=== PATIENT | male | born 1950 | race Hispanic/Latino ===

== ENCOUNTER 2016-06-01 07:12 | Day surgery (SDC) | payer MEDICARE, BC ==
[2016-06-01 08:38] VITALS: BMI 28.8
[2016-06-01] MEDS ORDERED: Lactated Ringer's 1,000 ML IV ONE ×2 (09:15→11:25)
[2016-06-01] MEDS ORDERED: Propofol 10 mg/ml Inj (20 ML) ONE (10:25)
[2016-06-01] MEDS ORDERED: Lidocaine 1% Inj (20ml) ONE (10:38)
[2016-06-01] MEDS ORDERED: Sodium Chloride 0.9% 100 ML ONE (10:50)
[2016-06-01] MEDS ORDERED: Lactated Ringer's 1,000 ML IV SCH (11:25)
[2016-06-01] MEDS ORDERED: HYDROmorphone 0.5 mg/0.5 ml ISec IVP PRN (11:25)
--- NOTE | 2016-06-01 11:29 | CP.SDSHP ---
Same Day Surgery H & P - History Proposed Procedure: Right lung mass biopsy Pre-Op Diagnosis: Right lung mass - Allergies Allergies: Allergies No Known Allergies Allergy (Verified 06/01/16 09:01) - Physical Exam Vital Signs: Vital Signs 06/01/16 06/01/16 09:00 10:42 Temperature 97.9 F 97.2 F L Pulse Rate 69 79 Respiratory 18 18 Rate Blood Pressure 127/78 155/97 H O2 Sat by Pulse 95 100 Oximetry Short Stay Discharge - Short Stay Discharge Admitting Diagnosis/Reason for Visit: LUNG MASS Disposition: HOME/ ROUTINE
--- NOTE | 2016-06-01 11:30 | PCM.SURG1 ---
Surgeon's Initial Post Op Note - Surgeon's Notes Surgeon: Lester Check Airman: None Type of Anesthesia: IV Sedation, Local Pre-Operative Diagnosis: Right lung mass. Operative Findings: Right lung mass. Post-Operative Diagnosis: Right lung mass. Operation Performed: Right lung mass CT guided biopsy. Specimen/Specimens Removed: 20G core samples obtained. Estimated Blood Loss: EBL {In ML}: 1 Date of Surgery/Procedure: 06/01/16 Time of Surgery/Procedure: 11:20
[2016-06-01] MEDS ORDERED: HYDROmorphone 0.5 mg/0.5 ml ISec ONE (12:33)
--- NOTE | 2016-06-01 13:31 | RAD ---
HISTORY: Right lung mass biopsy COMPARISON: CT chest without contrast from 05/25/2016 FINDINGS: LUNGS: There is redemonstration of a 2.5 cm nodule in the right upper lobe. There is a right lower lobe atelectasis. The left lung is clear. PLEURA: No significant pleural effusion identified, no pneumothorax apparent. CARDIOVASCULAR: Normal. OSSEOUS STRUCTURES: No significant abnormalities. VISUALIZED UPPER ABDOMEN: Normal. OTHER FINDINGS: There is chronic elevation of the right hemidiaphragm. IMPRESSION: Right basilar atelectasis. No change in known 2.5 centimeter right upper lobe nodule.
[2016-06-01 14:22] VITALS: RESP 18
--- NOTE | 2016-06-01 15:17 | RAD ---
HISTORY: Right lung mass biopsy COMPARISON: 06/01/2016 earlier on. FINDINGS: LUNGS: Nodular opacity in the right lower lung again seen. Hazy opacity in the right lung base seen. PLEURA: No significant pleural effusion identified, no pneumothorax apparent. CARDIOVASCULAR: Normal. OSSEOUS STRUCTURES: The osseous structures demonstrate degenerative changes. VISUALIZED UPPER ABDOMEN: Upper abdomen is suboptimally evaluated. OTHER FINDINGS: None. IMPRESSION: The right lower lung nodule and hazy opacity, unchanged. No pneumothorax seen.
--- NOTE | 2016-06-01 15:17 | CT ---
CT-guided right lung mass biopsy History: 66-year-old male with right lung mass. Evaluate for malignancy. Comparison: Comparison is made to CT scan of the chest from 05/25/2016. Anesthesia: Anesthesia support provided by attending anesthesiologist. Procedure and findings The procedure was explained to the patient including relative risks and benefits. The patient understood the procedure and provided written informed consent. Continuous physiologic monitoring was provided by the attending anesthesiologist and the interventional radiology nurse. The patient was positioned prone on the CT table. A metallic grid was utilized to identify the percutaneous access site. Subsequently, the access site and the subcutaneous tissue were anesthetized using 1 % lidocaine. A 19 gauge coaxial introducer needle was then advanced through a percutaneous access site into the peripheral aspect of the right lung mass. After confirming the correct positioning of the needle using CT, the inner stylet was removed. A 20 gauge spring-loaded core biopsy needle was then introduced through the 19 gauge outer cannula. 3 biopsy samples were obtained and sent to the pathologist for evaluation of adequacy. Final CT images demonstrated mild hazy opacity surrounding the biopsied segment. No pneumothorax was apparent. A sterile dressing was applied. The patient tolerated procedure well without incident. The patient was transferred to the recovery room in stable condition. Serial chest radiographs were ordered to evaluate for pneumothorax. Impression: Successful percutaneous core needle biopsy of the right lung mass.
[2016-06-01 15:53] VITALS: BP 130/80; PULSE 73; TEMP 98; O2SAT 94
== END 2016-06-01 15:55 | disposition home or self-care (01) ==
LOC: H.OPSURG 07:12
PROVIDERS: ATTEND Internal Medicine Pulmonary Disease
DX: R91.8 Other nonspecific abnormal finding of lung field (principal)
CPT/HCPCS: 32405; 71010; 77012; 88307; J1170; J2001; J2704; J7120

== ENCOUNTER 2018-03-07 14:03 | Observation (INO) | payer MEDICARE, BC ==
[2018-03-07 14:03] VITALS: BMI 28.8
--- NOTE | 2018-03-07 14:46 | ED PDOC ---
HPI: Chest Pain Time Seen by Provider: 03/07/18 14:17 Chief Complaint (Nursing): Chest Pain Additional Complaint(s): 67 year old Male with PMHx hyperlipidemia and right lung nodule s/p biopsy neg for CA presents to ER with complaints of chest tightness, shortness of breath, non productive cough and right sided chest discomfort for 1 week. Patient reports right sided chest discomfort radiates to right shoulder and neck. Also reports chest tightness and shortness breath is worse today. Denies any focal weakness, nausea,vomiting,abdominal pain, complaints, fever or chills. Of note, Patient had chest CT done this morning for f/u on his lung nodule. Patient called his double cut off saw operator Dr. Duke today and patient was advised to come to ED for further evaluation. PMD: Dr. Cui Dry Wall Plasterer: Dr. Duke Past Medical History Vital Signs: Last Vital Signs Temp 98.3 F 03/07/18 14:11 Pulse 76 03/07/18 14:11 Resp 18 03/07/18 14:11 BP 169/89 H 03/07/18 14:11 Pulse Ox 100 03/07/18 14:11 - Medical History PMH: Benign Prostatic Hyperplasia, HTN, Hypercholesterolemia, Kidney Stones, Mitral Valve Prolapse, Pneumonia Denies: Arthritis, CHF, COPD, Fractures, HIV, Hypothyroidism, Chronic Kidney Disease, Rheumatoid Arthritis - Family History Family History: States: Unknown Family Hx - Home Medications Home Medications: Ambulatory Orders Medication Instructions Recorded Atorvastatin [Lipitor] 10 mg PO HS #0 tab 09/15/15 Lisinopril [Zestril] 5 mg PO DAILY #0 tab 09/15/15 Tadalafil [Cialis] 5 mg PO DAILY #0 tablet 09/15/15 Atorvastatin [Lipitor] 10 mg PO DAILY 06/01/16 Tadalafil [Cialis] 5 mg PO DAILY 06/01/16 - Allergies Allergies/Adverse Reactions: Allergies Allergy/AdvReac Type Severity Reaction Status Date / Time No Known Allergies Allergy Verified 06/01/16 09:01 Review of Systems ROS Statement: Except As Marked, All Systems Reviewed And Found Negative Physical Exam - Physical Exam Appears: Positive for: Non-toxic, No Acute Distress Head Exam: Positive for: ATRAUMATIC, NORMOCEPHALIC Skin: Positive for: Normal Color, Warm. Negative for: Diaphoresis Neck: Positive for: Supple Cardiovascular/Chest: Positive for: Regular Rate, Rhythm, Murmur Respiratory: Positive for: Crackles (on right lung base). Negative for: Accessory Muscle Use, Wheezing, Respiratory Distress Gastrointestinal/Abdominal: Positive for: Normal Exam, Bowel Sounds, Soft. Negative for: Tenderness Extremity: Negative for: Pedal Edema, Calf Tenderness Neurologic/Psych: Positive for: Alert, Oriented - Laboratory Results Result Diagrams: 03/07/18 15:10 03/07/18 15:10 - ECG O2 Sat by Pulse Oximetry: 100 - Progress ED Course And Treament: 67 yo male presents to ED for chest tightness, right sided chest discomfort, shortness of breath and dry cough x 1 week. Plan: EKG Troponin I CBC CMP PT/INR Re-evaluate Patient had Chest CT w/o contrast this morning CHEST CT: IMPRESSION: Stable dominant pulmonary nodule in satellite lesion anterior segment right upper lobe. Stability over 18 months, comparison of 3 sequential serial studies Additional benign and/or incidental findings described above. ECG shows NSR @78 BMP. Right bundle branch block seen. Compared with prior ECG in 08/2015, no RBBB seen in previous ECG. Labs reviewed: CBC, CMP, Troponin x 1 neg and proBNP neg. Plan d/w with / TIME 15:[address] Cui regarding the needs for admission due to EKG changes. Hospitalist are covering for Dr. Cui. Time: 16:47 Dr. Denton spoke with Hospitalist Dr. Denton regarding admission for chest pain. Disposition - Clinical Impression Clinical Impression: Chest pain - Disposition Disposition Time: 17:14 Condition: FAIR
[2018-03-07 15:24] LABS: BASO # 0.1 K/uL (0.0-0.2); BASO % 1.1 % (0.0-2.0); EOS # 0.2 K/uL (0.0-0.7); EOS % 3.2 % (0.0-4.0); HEMOGLOBIN 15.5 g/dL (12.0-18.0); LYMPH # 1.2 K/uL (1.0-4.3); LYMPH % 18.3 % (20.0-40.0); MEAN CELL VOLUME 92.1 fl (80.0-94.0); MEAN CORPUSCULAR HGB CONC 32.6 g/dL (33.0-37.0); MEAN PLATELET VOLUME 7.1 fl (7.2-11.7); MONO # 0.6 K/uL (0.0-0.8); MONO % 9.8 % (0.0-10.0); NEUT # 4.3 K/uL (1.8-7.0); NEUT % 67.6 % (50.0-75.0); RBC 5.18 Mil/uL (4.40-5.90); RED CELL DISTRIBUTION WIDTH 13.4 % (11.5-14.5); WHITE BLOOD COUNT 6.4 K/uL (4.8-10.8)
[2018-03-07 15:29] LABS: PROTHROMBIN TIME 11.5 Seconds (9.8-13.1)
[2018-03-07 15:31] LABS: PARTIAL THROMBOPLASTIN TIME 29.8 Seconds (25.6-37.1)
[2018-03-07 15:32] LABS: ALB/GLOB RATIO 1.3 (1.0-2.1); ALT/SGPT 53 U/L (21-72); AST/SGOT 29 U/L (17-59); BLOOD UREA NITROGEN 19 mg/dl (9-20); CALCIUM 9.1 mg/dL (8.4-10.2); GFR NON-AFRICAN AMERICAN > 60
[2018-03-07 15:53] LABS: B-TYPE NATRIURETIC PEPTIDE 33.7 pg/ml (0-900)
--- NOTE | 2018-03-07 16:17 | ED PDOC ---
- Laboratory Results Result Diagrams: 03/07/18 15:10 03/07/18 15:10 - ECG O2 Sat by Pulse Oximetry: 100 - Progress ED Course And Treament: 1615: Stable. AAOx3. Took over care from Dr. Blair. Yariel on labs. Dr. Cui is pcp. 1647: Stable. AAOx3. Pain free. Spoke with with Dr. Santos. Will admit. Disposition - Clinical Impression Clinical Impression: Chest pain - POA Present On Arrival: None Core Measure Indicators: Chest Pain - Disposition Disposition: Hospitalized as Observation Patient Disposition Time: 16:49 Condition: FAIR
--- NOTE | 2018-03-07 17:13 | CP.PCM.HP ---
<HumphreyDelarosa - Last Filed: 03/07/18 17:35> History of Present Illness - History of Present Illness History of Present Illness: 67 y/o M with PMHx of HLD and right lung nodule, s/p biopsy negative for Ca as per patient presents to ED complaining of chest tightness, shortness of breath and dry nonproductive cough for 1 week. Chest tightness is right sided, constant, with pain radiating to right sided neck and shoulder and aggravated by deep breathing. Chest tightness and SOb worsened today. Denies recent illness, ill contacts. Denies trying any new medications. Denies any dizziness, focal weakness, nausea, vomiting, abdominal pain, complaints, fever or chills. Patient also had chest CT done this morning for f/u on his lung nodule. Patient called his development trainer Dr. Dkue today and patient was advised to come to ED for further evaluation. PMD: Dr. Cui Pharmacist In Charge Owner: Dr. Duke PMHx: HLD, BPH PSHx: B/L inguinal hernia repair 20 years ago, R Lung Bx 2 years ago Allergies: NKDA Medications: Cialis 5 mg daily, Testosterone, Statin 20 mg F/H: Mother HTN Social Hx: Occasional alcohol, Denies smoking/drug use ED Course Vitals: Temp 98.3, HR 76, BP 169/89, RR 18 ECG: NSR @78 BMP. Right bundle branch block seen. Compared with prior ECG in 08/2015, no RBBB seen in previous ECG. Troponin I Neg CBC, CMP, PT/INR WNL Patient had Chest CT w/o contrast this morning CHEST CT: Stable dominant pulmonary nodule in satellite lesion anterior segment right upper lobe. Stability over 18 months, comparison of 3 sequential serial studies, Additional benign and/or incidental findings described above. Present on Admission - Present on Admission Any Indicators Present on Admission: No History of DVT/PE: No History of Uncontrolled Diabetes: No Urinary Catheter: No Decubitus Ulcer Present: No Review of Systems - Constitutional Constitutional: absent: Fatigue, Fever, Weakness - EENT Eyes: absent: Change in Vision - Cardiovascular Cardiovascular: Chest Pain, Dyspnea. absent: Irregular Heart Rhythm, Leg Edema, Pedal Edema - Respiratory Respiratory: Cough - Gastrointestinal Gastrointestinal: absent: Abdominal Pain, Change in Bowel Habits, Constipation, Diarrhea, Nausea, Vomiting - Genitourinary Genitourinary: absent: Change in Urinary Stream - Musculoskeletal Musculoskeletal: absent: Back Pain Past Patient History - Infectious Disease Hx of Infectious Diseases: None - Past Medical History & Family History Past Medical History?: Yes - Past Social History Smoking Status: Never Smoked - CARDIAC Hx Congestive Heart Failure: No Hx Hypercholesterolemia: Yes Hx Hypertension: Yes Hx Mitral Valve Prolapse: Yes - PULMONARY Hx Chronic Obstructive Pulmonary Disease (COPD): No Hx Pneumonia: Yes - NEUROLOGICAL Hx Neurological Disorder: No HX Cerebrovascular Accident: No - HEENT Hx HEENT Problems: No - RENAL Hx Chronic Kidney Disease: No Hx Kidney Stones: Yes - ENDOCRINE/METABOLIC Hx Hypothyroidism: No - HEMATOLOGICAL/ONCOLOGICAL Hx Human Immunodeficiency Virus (HIV): No - INTEGUMENTARY Hx Dermatological Problems: No - MUSCULOSKELETAL/RHEUMATOLOGICAL Hx Arthritis: No Hx Fractures: No Hx Rheumatoid Arthritis: No - GASTROINTESTINAL Hx Gastrointestinal Disorders: No - GENITOURINARY/GYNECOLOGICAL Hx Genitourinary Disorders: No Hx Prostate Problems: Yes - PSYCHIATRIC Hx Psychophysiologic Disorder: No Hx Substance Use: No - SURGICAL HISTORY Hx Surgeries: Yes Hx Herniorrhaphy: Yes - ANESTHESIA Hx Anesthesia: Yes Hx Anesthesia Reactions: No Hx Malignant Hyperthermia: No Meds Allergies/Adverse Reactions: Allergies Allergy/AdvReac Type Severity Reaction Status Date / Time No Known Allergies Allergy Verified 06/01/16 09:01 Physical Exam - Constitutional Appears: No Acute Distress - Head Exam Head Exam: ATRAUMATIC, NORMOCEPHALIC - Eye Exam Eye Exam: EOMI, Normal appearance - ENT Exam ENT Exam: Mucous Membranes Moist - Neck Exam Neck exam: Positive for: Full Rom - Respiratory Exam Respiratory Exam: Clear to Auscultation Bilateral. absent: Decreased Breath Sounds, Rales, Rhonchi, Wheezes, Respiratory Distress - Cardiovascular Exam Cardiovascular Exam: REGULAR RHYTHM, +S1, +S2 - GI/Abdominal Exam GI & Abdominal Exam: Normal Bowel Sounds, Soft. absent: Distended, Tenderness - Extremities Exam Extremities exam: Negative for: calf tenderness, pedal edema, tenderness - Back Exam Back exam: absent: CVA tenderness (L), CVA tenderness (R) - Neurological Exam Neurological exam: Alert, Altered, Oriented x3 - Psychiatric Exam Psychiatric exam: Normal Affect, Normal Mood - Skin Skin Exam: Dry, Intact, Normal Color, Warm Results - Vital Signs Recent Vital Signs: Last Vital Signs Temp 98.3 F 03/07/18 14:11 Pulse 76 03/07/18 14:11 Resp 18 03/07/18 14:11 BP 169/89 H 03/07/18 14:11 Pulse Ox 100 03/07/18 16:49 - Labs Result Diagrams: 03/07/18 15:10 03/07/18 15:10 Labs: Laboratory Results - last 24 hr 03/07/18 03/07/18 03/07/18 15:10 15:10 15:10 WBC 6.4 RBC 5.18 Hgb 15.5 Hct 47.7 MCV 92.1 MCH 30.0 MCHC 32.6 L RDW 13.4 Plt Count 269 MPV 7.1 L Neut % (Auto) 67.6 Lymph % (Auto) 18.3 L [place] % (Auto) 9.8 Eos % (Auto) 3.2 Baso % (Auto) 1.1 Neut # (Auto) 4.3 Lymph # (Auto) 1.2 [place] # (Auto) 0.6 Eos # (Auto) 0.2 Baso # (Auto) 0.1 PT 11.5 INR 1.0 APTT 29.8 Sodium 140 Potassium 4.4 Chloride 104 Carbon Dioxide 28 Anion Gap 12 BUN 19 Creatinine 0.6 L Est GFR ( Amer) > 60 Est GFR (Non-Af Amer) > 60 Random Glucose 91 Calcium 9.1 Total Bilirubin 0.4 AST 29 ALT 53 Alkaline Phosphatase 55 Troponin I < 0.0120 NT-Pro-B Natriuret Pep 33.7 Total Protein 7.0 Albumin 4.0 Globulin 3.0 Albumin/Globulin Ratio 1.3 Assessment & Plan - Assessment and Plan (Free Text) Assessment: 67 y/o M with PMHx of HLD and right lung nodule, s/p biopsy negative for Ca as per patient presents to ED complaining of chest tightness, shortness of breath and dry nonproductive cough for 1 week. Plan: Right sided chest pain, R/O ACS H/O Pulmonary nodule - Admitted to telemetry - EKG: NSR, RBBB, Left ant fascicular block - Troponin neg x 1, CBC, CMP, PT/PTT unremarkable - Dr. Cui consulted: Recs appreciated - Cardiology consulted: Dr Duke, Recs appreciated - Started on ASA 81, Atorvastatin 10 mg, Lisinopril 5 mg PO - F/U Troponins x 2, CBC, CMP - F/U Echo Hyperlipedemia - Continue Lipitor 20 mg daily DVT Prophylaxis - SCDs - LOvenox 40 mg SC daily Diet: Heart healthy <Jd Santos D - Last Filed: 03/07/18 17:41> Results - Vital Signs Recent Vital Signs: Last Vital Signs Temp 98.3 F 03/07/18 14:11 Pulse 76 03/07/18 14:11 Resp 18 03/07/18 14:11 BP 169/89 H 03/07/18 14:11 Pulse Ox 100 03/07/18 17:15 - Labs Result Diagrams: 03/07/18 15:10 03/07/18 15:10 Labs: Laboratory Results - last 24 hr 03/07/18 03/07/18 03/07/18 15:10 15:10 15:10 WBC 6.4 RBC 5.18 Hgb 15.5 Hct 47.7 MCV 92.1 MCH 30.0 MCHC 32.6 L RDW 13.4 Plt Count 269 MPV 7.1 L Neut % (Auto) 67.6 Lymph % (Auto) 18.3 L [place] % (Auto) 9.8 Eos % (Auto) 3.2 Baso % (Auto) 1.1 Neut # (Auto) 4.3 Lymph # (Auto) 1.2 [place] # (Auto) 0.6 Eos # (Auto) 0.2 Baso # (Auto) 0.1 PT 11.5 INR 1.0 APTT 29.8 Sodium 140 Potassium 4.4 Chloride 104 Carbon Dioxide 28 Anion Gap 12 BUN 19 Creatinine 0.6 L Est GFR ( Amer) > 60 Est GFR (Non-Af Amer) > 60 Random Glucose 91 Calcium 9.1 Total Bilirubin 0.4 AST 29 ALT 53 Alkaline Phosphatase 55 Troponin I < 0.0120 NT-Pro-B Natriuret Pep 33.7 Total Protein 7.0 Albumin 4.0 Globulin 3.0 Albumin/Globulin Ratio 1.3 Attending/Attestation - Attestation I have personally seen and examined this patient.: Yes I have fully participated in the care of the patient.: Yes I have reviewed all pertinent clinical information: Yes Notes (Text): 03/07/18 17:39 Patient seen and examined with resident. Case discussed and agreed with assessment and plan of management
--- NOTE | 2018-03-07 19:02 | CARD ---
APPROVED REPORT Date of service: 03/07/2018 EKG Measurement Heart [id number] <Conclusion> Normal sinus rhythm Right bundle branch block Left anterior fascicular block Bifascicular block Abnormal ECG
[2018-03-08 06:06] LABS: MEAN CELL VOLUME 94.2 fl (80.0-94.0); MEAN CORPUSCULAR HEMOGLOBIN 30.4 pg (27.0-31.0); MEAN CORPUSCULAR HGB CONC 32.3 g/dL (33.0-37.0); RBC 4.94 Mil/uL (4.40-5.90); RED CELL DISTRIBUTION WIDTH 13.4 % (11.5-14.5); WHITE BLOOD COUNT 5.3 K/uL (4.8-10.8)
[2018-03-08 06:27] LABS: BLOOD UREA NITROGEN 19 mg/dl (9-20); CALCIUM 8.6 mg/dL (8.4-10.2); GFR NON-AFRICAN AMERICAN > 60
[2018-03-08 07:54] VITALS: RESP 20
[2018-03-08] MEDS ORDERED: Enoxaparin 40 mg Syringe SC SCH (09:00)
--- NOTE | 2018-03-08 11:52 | CP.PCM.CON ---
History of Present Illness - History of Present Illness History of Present Illness: This 67 year old male, a former cigarette smoker, has been known to me since August 2015 when he was hospitalized with a severe right upper lobe pneumonia. He did recover from that episode with antibiotic therapy and was discharged home. In follow up he developed what appeared to be a pleural based, rounded atelectasis in the right upper lobe. A bronchoscopy with biopsy at that time showed atelectasis with mixed acute and chronic inflammation. Serial CT scans since that time have shown a stable pleural based nodule/atelectasis which has gradually decreased in size to 1.4 X 1.7cm. He presented to the emergency room yesterday with right sided pleuritic type of pain associated with shortness of breath. No fever, chills or leukocytosis found. He did have some changes in his EKG and was kept overnight for cardiac evaluation. This morning he does feel improved w/o pain or SOB at present. He has never had any hemoptysis, and has h ad occasional non-productive cough and episodes of mild transient pleuritic pain on that side. Past Patient History - Infectious Disease Hx of Infectious Diseases: None - Past Medical History & Family History Past Medical History?: Yes - Past Social History Smoking Status: Former Smoker Chewing Tobacco Use: No Cigar Use: No Alcohol: Social Drugs: Denies Home Situation {Lives}: With Family - CARDIAC Hx Congestive Heart Failure: No Hx Hypercholesterolemia: Yes Hx Mitral Valve Prolapse: Yes - PULMONARY Hx Pneumonia: Yes Other/Comment: rounded atelectasis RUL - NEUROLOGICAL Hx Neurological Disorder: No - HEENT Hx HEENT Problems: No - RENAL Hx Kidney Stones: Yes - ENDOCRINE/METABOLIC Hx Endocrine Disorders: No - HEMATOLOGICAL/ONCOLOGICAL Hx Blood Disorders: No Hx Human Immunodeficiency Virus (HIV): No - INTEGUMENTARY Hx Dermatological Problems: No - MUSCULOSKELETAL/RHEUMATOLOGICAL Hx Musculoskeletal Disorders: No Hx Falls: No - GASTROINTESTINAL Hx Gastrointestinal Disorders: No - GENITOURINARY/GYNECOLOGICAL Hx Prostate Problems: Yes - PSYCHIATRIC Hx Psychophysiologic Disorder: No Hx Substance Use: No - SURGICAL HISTORY Hx Herniorrhaphy: Yes - ANESTHESIA Hx Anesthesia: Yes Hx Anesthesia Reactions: No Hx Malignant Hyperthermia: No Has any member of the family had a problem w/ anesthesia?: No Meds Allergies/Adverse Reactions: Allergies Allergy/AdvReac Type Severity Reaction Status Date / Time No Known Allergies Allergy Verified 06/01/16 09:01 - Medications Medications: Current Medications Aspirin (Aspirin Chewable) 81 mg PO DAILY [facility] Last Admin: 03/08/18 10:56 Dose: 81 mg Atorvastatin Calcium (Lipitor) 20 mg PO DAILY [facility] Last Admin: 03/08/18 10:56 Dose: 20 mg Enoxaparin Sodium (Lovenox) 40 mg SC DAILY [facility]; Protocol Last Admin: 03/08/18 10:58 Dose: 40 mg Lisinopril (Zestril) 5 mg PO DAILY [facility] Last Admin: 03/08/18 10:57 Dose: 5 mg Physical Exam - Additional Findings Additional findings: Well nourished, well developed, in no acute distress, seated on EOB. Mild flushed appearance of upper anterior thorax and base of neck. Pharynx is pink and moist w/o exudate. Conjunctivae are pink and non-icteric. Nares are patent bilaterally w/o bleeding. Neck is supple, trachea midline, no JVD or carotid bruit. Palpable, tender, soft node in left supraclavicular fossa. No other adenopathy palpated. No dullness on chest percussion, no subcutaneous emphysema. Breath sounds are well heard bilaterally. Late inspiratory rhonchus RLL region. Left lung is clear on auscultation. No wheezes. No pleural rub appreciated. Heart sounds well heard, no murmur, regular rhythm. Abdomen is soft and non-tender with normal bowel sounds. No dependant edema, no cyanosis, no rashes, no calf tenderness. Results - Vital Signs Recent Vital Signs: Last Vital Signs Temp 97.8 F 03/08/18 09:00 Pulse 82 03/08/18 10:57 Resp 20 03/08/18 09:00 BP 128/84 03/08/18 10:57 Pulse Ox 96 03/08/18 09:00 - Labs Result Diagrams: 03/08/18 05:00 03/08/18 05:00 Labs: Laboratory Results - last 24 hr 03/07/18 03/07/18 03/07/18 15:10 15:10 15:10 WBC 6.4 RBC 5.18 Hgb 15.5 Hct 47.7 MCV 92.1 MCH 30.0 MCHC 32.6 L RDW 13.4 Plt Count 269 MPV 7.1 L Neut % (Auto) 67.6 Lymph % (Auto) 18.3 L [place] % (Auto) 9.8 Eos % (Auto) 3.2 Baso % (Auto) 1.1 Neut # (Auto) 4.3 Lymph # (Auto) 1.2 [place] # (Auto) 0.6 Eos # (Auto) 0.2 Baso # (Auto) 0.1 PT 11.5 INR 1.0 APTT 29.8 Sodium 140 Potassium 4.4 Chloride 104 Carbon Dioxide 28 Anion Gap 12 BUN 19 Creatinine 0.6 L Est GFR ( Amer) > 60 Est GFR (Non-Af Amer) > 60 Random Glucose 91 Calcium 9.1 Total Bilirubin 0.4 AST 29 ALT 53 Alkaline Phosphatase 55 Troponin I < 0.0120 NT-Pro-B Natriuret Pep 33.7 Total Protein 7.0 Albumin 4.0 Globulin 3.0 Albumin/Globulin Ratio 1.3 03/07/18 03/08/18 03/08/18 19:38 05:00 05:00 WBC 5.3 RBC 4.94 Hgb 15.0 Hct 46.6 MCV 94.2 H D MCH 30.4 MCHC 32.3 L RDW 13.4 Plt Count 270 MPV Neut % (Auto) Lymph % (Auto) [place] % (Auto) Eos % (Auto) Baso % (Auto) Neut # (Auto) Lymph # (Auto) [place] # (Auto) Eos # (Auto) Baso # (Auto) PT INR APTT Sodium 138 Potassium 4.1 Chloride 104 Carbon Dioxide 28 Anion Gap 10 BUN 19 Creatinine 0.7 L Est GFR ( Amer) > 60 Est GFR (Non-Af Amer) > 60 Random Glucose 86 Calcium 8.6 Total Bilirubin AST ALT Alkaline Phosphatase Troponin I < 0.0120 < 0.0120 NT-Pro-B Natriuret Pep Total Protein Albumin Globulin Albumin/Globulin Ratio Assessment & Plan (1) Rounded radiologic density Status: Chronic Priority: Medium (2) Pleuritic chest pain Status: Acute Priority: High - Assessment and Plan (Free Text) Plan: Although the size of the right pleural density is stable, and may have actually decreased in size, the persistent/recurrent symptoms may warrant further intervention. Will have follow up as an outpatient with possible surgical evaluation as well. Cardiac evaluation is presently being undertaken. - Date & Time Date: 03/08/18 Time: 12:24
[2018-03-08 12:04] VITALS: BP 131/85; PULSE 85; TEMP 98.3; O2SAT 95
--- NOTE | 2018-03-08 12:45 | CP.PCM.CON ---
History of Present Illness - History of Present Illness History of Present Illness: 67 yo male admitted with r sided chest pain. 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 Cardiac enzymes are normal x 3. ECHO: Normal LVEF, No wma, RV normal, MVP mild MR. Past Patient History - Infectious Disease Hx of Infectious Diseases: None - Past Medical History & Family History Past Medical History?: Yes - Past Social History Smoking Status: Former Smoker Chewing Tobacco Use: No Cigar Use: No Alcohol: Social Drugs: Denies Home Situation {Lives}: With Family - CARDIAC Hx Congestive Heart Failure: No Hx Hypercholesterolemia: Yes Hx Mitral Valve Prolapse: Yes - PULMONARY Hx Pneumonia: Yes Other/Comment: rounded atelectasis RUL - NEUROLOGICAL Hx Neurological Disorder: No - HEENT Hx HEENT Problems: No - RENAL Hx Kidney Stones: Yes - ENDOCRINE/METABOLIC Hx Endocrine Disorders: No - HEMATOLOGICAL/ONCOLOGICAL Hx Blood Disorders: No Hx Human Immunodeficiency Virus (HIV): No - INTEGUMENTARY Hx Dermatological Problems: No - MUSCULOSKELETAL/RHEUMATOLOGICAL Hx Musculoskeletal Disorders: No Hx Falls: No - GASTROINTESTINAL Hx Gastrointestinal Disorders: No - GENITOURINARY/GYNECOLOGICAL Hx Prostate Problems: Yes - PSYCHIATRIC Hx Psychophysiologic Disorder: No Hx Substance Use: No - SURGICAL HISTORY Hx Herniorrhaphy: Yes - ANESTHESIA Hx Anesthesia: Yes Hx Anesthesia Reactions: No Hx Malignant Hyperthermia: No Has any member of the family had a problem w/ anesthesia?: No Meds Home Medications: Home Medication List Medication Instructions Recorded Confirmed Type Azithromycin [Z-Surendra] 250 mg PO ASDIR #6 tab 03/08/18 Rx Allergies/Adverse Reactions: Allergies Allergy/AdvReac Type Severity Reaction Status Date / Time No Known Allergies Allergy Verified 06/01/16 09:01 - Medications Medications: Current Medications Aspirin (Aspirin Chewable) 81 mg PO DAILY [facility] Last Admin: 03/08/18 10:56 Dose: 81 mg Atorvastatin Calcium (Lipitor) 20 mg PO DAILY [facility] Last Admin: 03/08/18 10:56 Dose: 20 mg Enoxaparin Sodium (Lovenox) 40 mg SC DAILY [facility]; Protocol Last Admin: 03/08/18 10:58 Dose: 40 mg Lisinopril (Zestril) 5 mg PO DAILY [facility] Last Admin: 03/08/18 10:57 Dose: 5 mg Physical Exam - Head Exam Head Exam: NORMAL INSPECTION - ENT Exam ENT Exam: Mucous Membranes Dry - Neck Exam Neck exam: Positive for: Normal Inspection - Respiratory Exam Respiratory Exam: Clear to Auscultation Bilateral - Cardiovascular Exam Cardiovascular Exam: REGULAR RHYTHM - GI/Abdominal Exam GI & Abdominal Exam: Normal Bowel Sounds - Extremities Exam Extremities exam: Positive for: normal inspection Results - Vital Signs Recent Vital Signs: Last Vital Signs Temp 98.3 F 03/08/18 12:03 Pulse 85 03/08/18 12:03 Resp 20 03/08/18 12:03 BP 131/85 03/08/18 12:03 Pulse Ox 95 03/08/18 12:03 - Labs Result Diagrams: 03/08/18 05:00 03/08/18 05:00 Labs: Laboratory Results - last 24 hr 03/07/18 03/07/18 03/07/18 15:10 15:10 15:10 WBC 6.4 RBC 5.18 Hgb 15.5 Hct 47.7 MCV 92.1 MCH 30.0 MCHC 32.6 L RDW 13.4 Plt Count 269 MPV 7.1 L Neut % (Auto) 67.6 Lymph % (Auto) 18.3 L [place] % (Auto) 9.8 Eos % (Auto) 3.2 Baso % (Auto) 1.1 Neut # (Auto) 4.3 Lymph # (Auto) 1.2 [place] # (Auto) 0.6 Eos # (Auto) 0.2 Baso # (Auto) 0.1 PT 11.5 INR 1.0 APTT 29.8 Sodium 140 Potassium 4.4 Chloride 104 Carbon Dioxide 28 Anion Gap 12 BUN 19 Creatinine 0.6 L Est GFR ( Amer) > 60 Est GFR (Non-Af Amer) > 60 Random Glucose 91 Calcium 9.1 Total Bilirubin 0.4 AST 29 ALT 53 Alkaline Phosphatase 55 Troponin I < 0.0120 NT-Pro-B Natriuret Pep 33.7 Total Protein 7.0 Albumin 4.0 Globulin 3.0 Albumin/Globulin Ratio 1.3 03/07/18 03/08/18 03/08/18 19:38 05:00 05:00 WBC 5.3 RBC 4.94 Hgb 15.0 Hct 46.6 MCV 94.2 H D MCH 30.4 MCHC 32.3 L RDW 13.4 Plt Count 270 MPV Neut % (Auto) Lymph % (Auto) [place] % (Auto) Eos % (Auto) Baso % (Auto) Neut # (Auto) Lymph # (Auto) [place] # (Auto) Eos # (Auto) Baso # (Auto) PT INR APTT Sodium 138 Potassium 4.1 Chloride 104 Carbon Dioxide 28 Anion Gap 10 BUN 19 Creatinine 0.7 L Est GFR ( Amer) > 60 Est GFR (Non-Af Amer) > 60 Random Glucose 86 Calcium 8.6 Total Bilirubin AST ALT Alkaline Phosphatase Troponin I < 0.0120 < 0.0120 NT-Pro-B Natriuret Pep Total Protein Albumin Globulin Albumin/Globulin Ratio Assessment & Plan - Assessment and Plan (Free Text) Assessment: Non cardiac chest pain No clinical evidence of ischemia Nonspecific EKG abnormalities ECHO: unremarkable OK to DC F/u as outpatient
--- NOTE | 2018-03-08 14:54 | CP.PCM.DIS ---
<[place] Yin - Last Filed: 03/08/18 15:04> Provider - Provider Date of Admission: 03/07/18 16:48 Attending physician: Jd Santos MD Consults: 03/07/18 16:50 Cardiology Consult Stat Comment: Consulting Provider: Alberto Duke Consulting Physician: Alberto Duke Reason for Consult: chest pain with bifascicular block Pulmonology Consult Stat Comment: Consulting Provider: Eloy Cui Consulting Physician: Eloy Ciu Reason for Consult: right sided chest pain Time Spent in preparation of Discharge (in minutes): 35 Diagnosis - Discharge Diagnosis (1) Chest pain not due to acute coronary syndrome Status: Acute (2) Lung nodule, solitary Status: Chronic Hospital Course - Lab Results Lab Results: Most Recent Lab Values WBC 5.3 K/uL (4.8-10.8) 03/08/18 05:00 RBC 4.94 Mil/uL (4.40-5.90) 03/08/18 05:00 Hgb 15.0 g/dL (12.0-18.0) 03/08/18 05:00 Hct 46.6 % (35.0-51.0) 03/08/18 05:00 MCV 94.2 fl (80.0-94.0) H D 03/08/18 05:00 MCH 30.4 pg (27.0-31.0) 03/08/18 05:00 MCHC 32.3 g/dL (33.0-37.0) L 03/08/18 05:00 RDW 13.4 % (11.5-14.5) 03/08/18 05:00 Plt Count 270 K/uL (130-400) 03/08/18 05:00 MPV 7.1 fl (7.2-11.7) L 03/07/18 15:10 Neut % (Auto) 67.6 % (50.0-75.0) 03/07/18 15:10 Lymph % (Auto) 18.3 % (20.0-40.0) L 03/07/18 15:10 [place] % (Auto) 9.8 % (0.0-10.0) 03/07/18 15:10 Eos % (Auto) 3.2 % (0.0-4.0) 03/07/18 15:10 Baso % (Auto) 1.1 % (0.0-2.0) 03/07/18 15:10 Neut # (Auto) 4.3 K/uL (1.8-7.0) 03/07/18 15:10 Lymph # (Auto) 1.2 K/uL (1.0-4.3) 03/07/18 15:10 [place] # (Auto) 0.6 K/uL (0.0-0.8) 03/07/18 15:10 Eos # (Auto) 0.2 K/uL (0.0-0.7) 03/07/18 15:10 Baso # (Auto) 0.1 K/uL (0.0-0.2) 03/07/18 15:10 PT 11.5 Seconds (9.8-13.1) 03/07/18 15:10 INR 1.0 03/07/18 15:10 APTT 29.8 Seconds (25.6-37.1) 03/07/18 15:10 Sodium 138 mmol/l (132-148) 03/08/18 05:00 Potassium 4.1 MMOL/L (3.6-5.0) 03/08/18 05:00 Chloride 104 mmol/L (98-107) 03/08/18 05:00 Carbon Dioxide 28 mmol/L (22-30) 03/08/18 05:00 Anion Gap 10 (10-20) 03/08/18 05:00 BUN 19 mg/dl (9-20) 03/08/18 05:00 Creatinine 0.7 mg/dl (0.8-1.5) L 03/08/18 05:00 Est GFR ( Amer) > 60 03/08/18 05:00 Est GFR (Non-Af Amer) > 60 03/08/18 05:00 Random Glucose 86 mg/dL (75-110) 03/08/18 05:00 Calcium 8.6 mg/dL (8.4-10.2) 03/08/18 05:00 Total Bilirubin 0.4 mg/dl (0.2-1.3) 03/07/18 15:10 AST 29 U/L (17-59) 03/07/18 15:10 ALT 53 U/L (21-72) 03/07/18 15:10 Alkaline Phosphatase 55 U/L (38-126) 03/07/18 15:10 Troponin I < 0.0120 ng/mL (0.00-0.120) 03/08/18 05:00 NT-Pro-B Natriuret Pep 33.7 pg/ml (0-900) 03/07/18 15:10 Total Protein 7.0 G/DL (6.3-8.2) 03/07/18 15:10 Albumin 4.0 g/dL (3.5-5.0) 03/07/18 15:10 Globulin 3.0 gm/dL (2.2-3.9) 03/07/18 15:10 Albumin/Globulin Ratio 1.3 (1.0-2.1) 03/07/18 15:10 - Hospital Course Hospital Course: 67 y/o M with PMHx of HLD and right lung nodule, s/p biopsy negative for Ca as per patient presents to ED complaining of right chest tightness, shortness of breath and dry nonproductive cough for 1 week. Patient also had chest CT done this morning which showed stable 1.4 x 1.7 cm pulmonary nodule. Patient evaluated in ED and admitted to telemetry for overnight monitoring. Echocardiogram ordered and patient resumed on home medications. EKG abnormal however Troponis x [address] Cui and Dr. Duke consulted who cleared patient for discharge and advised to F/U on outpatient basis. Patient's VSS, afebrile and stable. 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 Discharge Medicaitons New Medications - Zpak 5 days, take as directed Home Medications - Testosterone 5 pump top Daily - Miltivitamin 1 tab PO Daily - ASA 325 mg PO SUN - Atorvastatin 20 mg PO Daily - Cialis 5 mg PO Daily Discharge Exam - Head Exam Head Exam: NORMAL INSPECTION - Eye Exam Eye Exam: EOMI, Normal appearance - ENT Exam ENT Exam: Mucous Membranes Moist - Neck Exam Neck exam: Full Rom - Respiratory Exam Respiratory Exam: Clear to PA & Lateral. absent: Rales, Rhonchi, Wheezes, Respiratory Distress - Cardiovascular Exam Cardiovascular Exam: REGULAR RHYTHM, +S1, +S2 - GI/Abdominal Exam GI & Abdominal Exam: Normal Bowel Sounds, Soft. absent: Tenderness - Neurological Exam Neurological exam: Alert, Altered, Oriented x3 - Psychiatric Exam Psychiatric exam: Normal Affect, Normal Mood - Skin Skin Exam: Dry, Intact, Normal Color, Warm Discharge Plan - Discharge Medications Prescriptions: Azithromycin [Z-Surendra] 250 mg PO ASDIR #6 tab - Follow Up Plan Condition: FAIR Disposition: HOME/ ROUTINE Instructions: Pleuritic Chest Pain (DC) Additional Instructions: please follow up with in 1 week Referrals: Eloy Cui MD [Family Provider] - Alberto Duke MD [Staff Provider] - <Jd Santos - Last Filed: 03/08/18 16:41> Provider - Provider Date of Admission: 03/07/18 16:48 Attending physician: Jd Santos MD Consults: 03/07/18 16:50 Cardiology Consult Stat Comment: Consulting Provider: Alberto Duke Consulting Physician: Alberto Duke Reason for Consult: chest pain with bifascicular block Pulmonology Consult Stat Comment: Consulting Provider: Eloy Cui Consulting Physician: Eloy Cui Reason for Consult: right sided chest pain Hospital Course - Lab Results Lab Results: Most Recent Lab Values WBC 5.3 K/uL (4.8-10.8) 03/08/18 05:00 RBC 4.94 Mil/uL (4.40-5.90) 03/08/18 05:00 Hgb 15.0 g/dL (12.0-18.0) 03/08/18 05:00 Hct 46.6 % (35.0-51.0) 03/08/18 05:00 MCV 94.2 fl (80.0-94.0) H D 03/08/18 05:00 MCH 30.4 pg (27.0-31.0) 03/08/18 05:00 MCHC 32.3 g/dL (33.0-37.0) L 03/08/18 05:00 RDW 13.4 % (11.5-14.5) 03/08/18 05:00 Plt Count 270 K/uL (130-400) 03/08/18 05:00 MPV 7.1 fl (7.2-11.7) L 03/07/18 15:10 Neut % (Auto) 67.6 % (50.0-75.0) 03/07/18 15:10 Lymph % (Auto) 18.3 % (20.0-40.0) L 03/07/18 15:10 [place] % (Auto) 9.8 % (0.0-10.0) 03/07/18 15:10 Eos % (Auto) 3.2 % (0.0-4.0) 03/07/18 15:10 Baso % (Auto) 1.1 % (0.0-2.0) 03/07/18 15:10 Neut # (Auto) 4.3 K/uL (1.8-7.0) 03/07/18 15:10 Lymph # (Auto) 1.2 K/uL (1.0-4.3) 03/07/18 15:10 [place] # (Auto) 0.6 K/uL (0.0-0.8) 03/07/18 15:10 Eos # (Auto) 0.2 K/uL (0.0-0.7) 03/07/18 15:10 Baso # (Auto) 0.1 K/uL (0.0-0.2) 03/07/18 15:10 PT 11.5 Seconds (9.8-13.1) 03/07/18 15:10 INR 1.0 03/07/18 15:10 APTT 29.8 Seconds (25.6-37.1) 03/07/18 15:10 Sodium 138 mmol/l (132-148) 03/08/18 05:00 Potassium 4.1 MMOL/L (3.6-5.0) 03/08/18 05:00 Chloride 104 mmol/L (98-107) 03/08/18 05:00 Carbon Dioxide 28 mmol/L (22-30) 03/08/18 05:00 Anion Gap 10 (10-20) 03/08/18 05:00 BUN 19 mg/dl (9-20) 03/08/18 05:00 Creatinine 0.7 mg/dl (0.8-1.5) L 03/08/18 05:00 Est GFR ( Amer) > 60 03/08/18 05:00 Est GFR (Non-Af Amer) > 60 03/08/18 05:00 Random Glucose 86 mg/dL (75-110) 03/08/18 05:00 Calcium 8.6 mg/dL (8.4-10.2) 03/08/18 05:00 Total Bilirubin 0.4 mg/dl (0.2-1.3) 03/07/18 15:10 AST 29 U/L (17-59) 03/07/18 15:10 ALT 53 U/L (21-72) 03/07/18 15:10 Alkaline Phosphatase 55 U/L (38-126) 03/07/18 15:10 Troponin I < 0.0120 ng/mL (0.00-0.120) 03/08/18 05:00 NT-Pro-B Natriuret Pep 33.7 pg/ml (0-900) 03/07/18 15:10 Total Protein 7.0 G/DL (6.3-8.2) 03/07/18 15:10 Albumin 4.0 g/dL (3.5-5.0) 03/07/18 15:10 Globulin 3.0 gm/dL (2.2-3.9) 03/07/18 15:10 Albumin/Globulin Ratio 1.3 (1.0-2.1) 03/07/18 15:10 Attending/Attestation - Attestation I have personally seen and examined this patient.: Yes I have fully participated in the care of the patient.: Yes I have reviewed all pertinent clinical information, including history, physical exam and plan: Yes Notes (Text): 03/08/18 16:41 Patient seen and examined with resident. Case discussed and agreed with assessment
--- NOTE | 2018-03-08 22:06 | CARD ---
APPROVED REPORT Date of service: 03/08/2018 EXAM: Two-dimensional and M-mode echocardiogram with Doppler and color Doppler. Other Information Quality : GoodRhythm : NSR INDICATION Chest Pain 2D DIMENSIONS IVSd1.18 (0.7-1.1cm)LVDd4.98 (3.9-5.9cm) LVOT Diameter2.48 (1.8-2.4cm)PWd0.90 (0.7-1.1cm) IVSs1.72 (0.8-1.2cm)LVDs2.59 (2.5-4.0cm) FS (%) 48.1 %PWs1.48 (0.8-1.2cm) M-Mode DIMENSIONS Left Atrium (MM)3.61 (2.5-4.0cm)IVSd1.13 (0.7-1.1cm) Aortic Root4.05 (2.2-3.7cm)LVDd5.74 (4.0-5.6cm) Aortic Cusp Exc.2.18 (1.5-2.0cm)PWd1.08 (0.7-1.1cm) IVSs2.04 cmFS (%) 52 % LVDs2.76 (2.0-3.8cm)PWs1.49 cm Aortic Valve AoV Peak Vdngpsfb967.5cm/sAoV VTI18.5cmAO Peak GR.5mmHg LVOT Peak Ftxidjtv54.6cm/sLVOT VTI17.38cmAO Mean GR.3mmHg LYNSEY (VMAX)1.13ga3GQY (VTI)2.28cm2 Mitral Valve MV E Qncawnyh78.0cm/sMV DECEL SBVQ024pdIV A Mciumefj19.8cm/s MV XSM31qrM/A ratio0.9MVA (PHT)2.91cm2 TDI Lateral E' Peak V10.19cm/sMedial E' Peak V6.44cm/sE/Lateral E'5.2 E/Medial E'8.2 Tricuspid Valve TR Peak Vliaacej959zo/sRAP [id number] Peak Gr.19mmHg [id number] LEFT VENTRICLE The left ventricle is normal size. There is normal left ventricular wall thickness. The left ventricular systolic function is normal. The estimated ejection fraction is 60-65% No regional wall motion abnormalities noted.. Transmitral Doppler flow pattern is Grade I-abnormal relaxation pattern. No left ventricle thrombus noted on this study. There is no ventricular septal defect visualized. There is no left ventricular aneurysm. There is no mass noted in the left ventricle. RIGHT VENTRICLE The right ventricle is normal size. There is normal right ventricular wall thickness. The right ventricular systolic function is normal. ATRIA The left atrium size is normal. The right atrium size is normal. The interatrial septum is intact with no evidence for an atrial septal defect. AORTIC VALVE The aortic valve is normal in structure. No aortic regurgitation is present. There is no aortic valvular stenosis. There is no aortic valvular vegetation. MITRAL VALVE The mitral valve is normal in structure. There is no evidence of mitral valve prolapse. There is no mitral valve stenosis. There is mild mitral valve regurgitation noted. TRICUSPID VALVE The tricuspid valve is normal in structure. There is mild tricuspid valve regurgitation noted. RVSP is calculated at 23 mm Hg. There is no tricuspid valve prolapse or vegetation. There is no tricuspid valve stenosis. PULMONIC VALVE The pulmonary valve is normal in structure. There is no pulmonic valvular regurgitation. There is no pulmonic valvular stenosis. GREAT VESSELS The aortic root is normal in size. The ascending aorta is normal in size. The pulmonary artery is normal. The IVC is normal in size and collapses >50% with inspiration. PERICARDIAL EFFUSION There is no pericardial effusion. There is no pleural effusion. <Conclusion> The estimated ejection fraction is 60-65% Transmitral Doppler flow pattern is Grade I-abnormal relaxation pattern. The left atrium size is normal. There is mild mitral valve regurgitation noted. There is mild tricuspid valve regurgitation noted. RVSP is calculated at 23 mm Hg.
== END 2018-03-08 13:27 | disposition home or self-care (01) ==
LOC: H.ER 14:03 → H.ERHOLD 16:48 → H.TEL 18:47
DX: R07.89 Other chest pain (principal); J98.4 Other disorders of lung; E78.00 Pure hypercholesterolemia, unspecified; N40.0 Benign prostatic hyperplasia without lower urinary tract symptoms; I34.1 Nonrheumatic mitral (valve) prolapse; I45.10 Unspecified right bundle-branch block; I10 Essential (primary) hypertension; Z79.899 Other long term (current) drug therapy; Z87.01 Personal history of pneumonia (recurrent); Z87.442 Personal history of urinary calculi; Z87.891 Personal history of nicotine dependence
CPT/HCPCS: 36415; 80048; 80053; 83880; 84484; 85025; 85027; 85610; 85730; 93005; 93306; 99285; G0378; J1650